=== PATIENT | female | born 2000 | race African-American/Black ===

== ENCOUNTER → 2021-06-07 | Outpatient (REF) | LOC: M EMP 14:57 | PROVIDERS: ATTEND Family Medicine | DX: Z20.822 Contact with and (suspected) exposure to COVID-19 (principal) ==

== ENCOUNTER → 2021-06-08 | Outpatient (REF) | LOC: M EMP 14:14 | PROVIDERS: ATTEND Family Medicine | DX: Z20.822 Contact with and (suspected) exposure to COVID-19 (principal) ==

== ENCOUNTER → 2021-06-19 | Outpatient (REF) | LOC: M LABSMTC 10:19 | PROVIDERS: ATTEND Pediatrics | DX: Z20.822 Contact with and (suspected) exposure to COVID-19 (principal) ==

== ENCOUNTER → 2021-07-14 | Outpatient (REF) | LOC: M EMP 15:06 | PROVIDERS: ATTEND Family Medicine | DX: Z11.52 Encounter for screening for COVID-19 (principal) ==

== ENCOUNTER 2021-11-05 23:29 | Emergency (ER) | payer OTHER, SELFPAY ==
[~2021-11-05] VITALS: Ht 165.1 cm; Wt 96.0 kg
[2021-11-05] MEDS ORDERED: CETI10CH PO (23:37)
[2021-11-06] MEDS ORDERED: ONDA4TAB6 PO (00:23)
[2021-11-06] MEDS ORDERED: VENTAER INH (00:23)
[2021-11-06] MEDS ORDERED: ONDANSETRON 4 MG ORAL DISINTEGRATING TAB PO ONE (00:25)
[2021-11-06 00:57] VITALS: BP 132/77
== END 2021-11-06 00:58 | disposition home or self-care (01) ==
LOC: M ED 23:29
DX: R50.9 Fever, unspecified (principal); R05.9 Cough, unspecified; J02.9 Acute pharyngitis, unspecified; U07.1 COVID-19; E66.9 Obesity, unspecified
CPT/HCPCS: 99283; Q0162

== ENCOUNTER 2022-01-15 19:53 | Emergency (ER) | payer OTHER, SELFPAY ==
[~2022-01-15] VITALS: Ht 162.6 cm; Wt 88.5 kg
[~2022-01-15 19:53] MED LIST: CETI10CH PO; ONDA4TAB6 PO; VENTAER INH
[2022-01-15 19:55] VITALS: BP 125/69
[2022-01-15] MEDS ORDERED: PROPARACAINE 0.5% OPHTH SOL 15ML OS ONE (20:35)
[2022-01-15] MEDS ORDERED: FLUORESCEIN OPHTH 1 MG STRIP OS ONE (20:35)
[2022-01-15] MEDS ORDERED: OFLO3OPSO OS (21:05)
== END 2022-01-15 21:22 | disposition home or self-care (01) ==
LOC: M ED 19:53
DX: H10.9 Unspecified conjunctivitis (principal)